=== PATIENT | female | born 1985 ===

== ENCOUNTER → 2020-04-15 | Outpatient (CLI) | payer OTHER | END | disposition home or self-care (01) | LOC: PRENATAL 13:30 | PROVIDERS: ATTEND Obstetrics & Gynecology Maternal & Fetal Medicine | DX: Z36.89 Encounter for other specified antenatal screening (principal); O36.80X1 Pregnancy with inconclusive fetal viability, fetus 1; Z3A.12 12 weeks gestation of pregnancy ==

== ENCOUNTER → 2020-05-29 | Outpatient (CLI) | payer OTHER | END | disposition home or self-care (01) | LOC: PRENATAL 13:00 | PROVIDERS: ATTEND Obstetrics & Gynecology Maternal & Fetal Medicine | DX: O35.0XX1 Maternal care for (suspected) central nervous system malformation in fetus, fetus 1 (principal); O35.3XX1 Maternal care for (suspected) damage to fetus from viral disease in mother, fetus 1; O98.512 Other viral diseases complicating pregnancy, second trimester; Z36.89 Encounter for other specified antenatal screening; Z3A.19 19 weeks gestation of pregnancy ==

== ENCOUNTER 2021-08-22 11:39 | Outpatient (CLI) | payer OTHER | END 2021-08-22 12:31 | disposition home or self-care (01) | LOC: NST 11:39 | PROVIDERS: ATTEND Obstetrics & Gynecology | DX: Z34.83 Encounter for supervision of other normal pregnancy, third trimester (principal) ==

== ENCOUNTER 2021-09-04 14:35 | Outpatient (CLI) | payer OTHER | END 2021-09-04 16:18 | disposition home or self-care (01) | LOC: NST 14:35 | PROVIDERS: ATTEND Obstetrics & Gynecology Maternal & Fetal Medicine | DX: Z36.5 Encounter for antenatal screening for isoimmunization (principal) ==

== ENCOUNTER 2021-09-12 12:39 | Outpatient (CLI) | payer OTHER | END 2021-09-12 12:57 | disposition home or self-care (01) | LOC: NST 12:39 | PROVIDERS: ATTEND Obstetrics & Gynecology | DX: Z34.83 Encounter for supervision of other normal pregnancy, third trimester (principal) ==

== ENCOUNTER 2021-09-12 15:00 | Inpatient (IN) | payer OTHER ==
[~2021-09-12] VITALS: Ht 152.4 cm; Wt 64.9 kg
[2021-10-01] MEDS ORDERED: PRENATAL TABLE1 EAC1 PO (07:12)
[2021-10-01] MEDS ORDERED: FOLIC ACID1 MG (16:02)
== END 2021-10-03 14:06 | disposition home or self-care (01) | DRG 768 ==
LOC: LDR 09-27 15:00 → SURG-SUITE 10-01 04:33 → LDR 10-01 04:33 → SURG-SUITE 10-01 16:57
PROVIDERS: ADMIT Obstetrics & Gynecology Maternal & Fetal Medicine; ATTEND Obstetrics & Gynecology Maternal & Fetal Medicine
PROC: 10D07Z6 Extraction of Products of Conception, Vacuum, Via Natural or Artificial Opening (ICD-10-PCS; principal; 2021-10-01)
PROC: 0DQR0ZZ Repair Anal Sphincter, Open Approach (ICD-10-PCS; 2021-10-01)
PROC: 0DQP0ZZ Repair Rectum, Open Approach (ICD-10-PCS; 2021-10-01)
PROC: 0W8NXZZ Division of Female Perineum, External Approach (ICD-10-PCS; 2021-10-01)
PROC: 4A1HXCZ Monitoring of Products of Conception, Cardiac Rate, External Approach (ICD-10-PCS; 2021-10-01)
DX: O70.3 Fourth degree perineal laceration during delivery (principal); Z37.0 Single live birth; O66.5 Attempted application of vacuum extractor and forceps; Z3A.40 40 weeks gestation of pregnancy; Z20.822 Contact with and (suspected) exposure to COVID-19

== ENCOUNTER 2021-09-23 08:08 | Outpatient (CLI) | payer OTHER | END 2021-09-23 08:40 | disposition home or self-care (01) | LOC: NST 08:08 | PROVIDERS: ATTEND Obstetrics & Gynecology | DX: Z34.83 Encounter for supervision of other normal pregnancy, third trimester (principal) ==

== ENCOUNTER 2021-09-26 09:02 | Outpatient (CLI) | payer OTHER | END 2021-09-26 09:49 | disposition home or self-care (01) | LOC: NST 09:02 | PROVIDERS: ATTEND Obstetrics & Gynecology | DX: Z34.83 Encounter for supervision of other normal pregnancy, third trimester (principal) ==